=== PATIENT | male | born 1955 | race Caucasian/White ===

== ENCOUNTER → 2016-12-13 | Outpatient (CLI) | payer OTHER ==
--- NOTE | 2016-12-13 11:46 | FL ---
EXAMINATION TYPE: FL barium swallow DATE OF EXAM: 12/13/2016 CLINICAL HISTORY: Dysphagia. Negative endoscopy 3 years ago. Perhaps mild narrowing at that time. Inc reasing dysphagia upper esophagus per patient. TECHNIQUE: A double contrast esophagram is performed utilizing air and barium. A total of 6 seconds of fluoroscopic time was utilized during procedure. COMPARISON: Upper GI study November 16, 2014 FINDINGS: The esophagus shows normal motility and emptying into the stomach. No evidence of hiatal h ernia or stricture noted. No diverticulum is present. No significant gastroesophageal reflux was seen during real time performance of this study. IMPRESSION: No significant abnormality is seen to account for patient's symptoms.
== END ==
LOC: RADFLMAIN 09:43
PROVIDERS: ATTEND Family Medicine
DX: R47.02 Dysphasia (principal)
CPT/HCPCS: 74220

== ENCOUNTER → 2017-05-11 | Outpatient (CLI) | payer OTHER | END | disposition home or self-care (01) | LOC: LABWHC1 15:10 | PROVIDERS: ATTEND Physical Medicine & Rehabilitation | DX: M51.36 Other intervertebral disc degeneration, lumbar region (principal); M47.817 Spondylosis without myelopathy or radiculopathy, lumbosacral region; S32.010A Wedge compression fracture of first lumbar vertebra, initial encounter for closed fracture; S32.030A Wedge compression fracture of third lumbar vertebra, initial encounter for closed fracture; S32.050A Wedge compression fracture of fifth lumbar vertebra, initial encounter for closed fracture; S32.020A Wedge compression fracture of second lumbar vertebra, initial encounter for closed fracture; M16.11 Unilateral primary osteoarthritis, right hip; M25.551 Pain in right hip; R07.81 Pleurodynia; M42.06 Juvenile osteochondrosis of spine, lumbar region; Z96.652 Presence of left artificial knee joint; M70.62 Trochanteric bursitis, left hip | CPT/HCPCS: 36415; 83970; 84165; 84402; 84403; 84443 ==

== ENCOUNTER → 2017-08-08 | Outpatient (CLI) | payer OTHER ==
--- NOTE | 2017-08-09 09:28 | BD ---
EXAMINATION TYPE: MG DEXA axial skeleton. DATE OF EXAM: 08/08/2017 COMPARISON: DEXA bone scan October 18, 2015. CLINICAL HISTORY: osteoporosis. Height: 5'6 1/2 Weight: 166 FRAX RISK QUESTIONS: Alcohol (3 or more units per day): no Family History (Parent hip fracture): no Glucocorticoids (More than 3mos): no (Ex: prednisone, prednisolone, methylprednisolone, dexamethasone, and hydrocortisone). History of Fracture in Adulthood: yes Secondary Osteoporosis: 1. Type 1 Diabetes: no 2. Hyperthyroidism: no 3. Menopause before 45: na 4. Malnutrition: no 5. Chronic liver disease: no Rheumatoid Arthritis: no Current Tobacco Use: yes RISK FACTORS HISTORY OF: Spine Fx: L1-L4 When: 2015 Surgery /Hip(\/left)/ When: 2014 Active: Diet low in dairy products/other sources of calcium: Lost more than 2 inches in height since high school: MEDICATIONS: Osteoporosis Medications: Which medication: Other How Lon years Additional Medications: Methadone, Plavix, Prilosec, inhaler copd Additional History: EXAM MEASUREMENTS: Bone mineral densitometry was performed using the [facility]. Bone mineral density about the R hip (g/cm2): 0.641 T Score values are as follows: -----R Neck: -2.9 -----R Total: -2.8 Bone mineral density has: Decreased -0.8% since study of: 10/18/2015 IMPRESSION: Osteoporosis (T Score less than -2.5) as noted by T Score values at the right hip remains present. T here is increased fracture risk and therapy is usually indicated based on age. Re-Screen 1-2 years. NOTE: T-SCORE=SD OF THE YOUNG ADULT MEAN.
== END | disposition home or self-care (01) ==
LOC: RADBDWWP 14:28
PROVIDERS: ATTEND Family Medicine
DX: M81.0 Age-related osteoporosis without current pathological fracture (principal)
CPT/HCPCS: 77080

== ENCOUNTER → 2017-09-21 | Outpatient (CLI) | payer OTHER ==
[2017-09-21 09:03] LABS: ALT 27 U/L (21-72); AST 19 U/L (17-59); Albumin 3.9 g/dL (3.5-5.0); Alkaline Phosphatase 77 U/L (38-126); Anion Gap 11 mmol/L; Blood Urea Nitrogen 19 mg/dL (9-20); Calcium 9.3 mg/dL (8.4-10.2); Carbon Dioxide 25 mmol/L (22-30); Chloride 109 mmol/L (98-107); Glucose 95 mg/dL (74-99); Potassium 4.3 mmol/L (3.5-5.1); Sodium 145 mmol/L (137-145); Total Bilirubin 0.3 mg/dL (0.2-1.3); Total Protein 6.3 g/dL (6.3-8.2)
[2017-09-21 16:57] LABS: Vitamin D 25 Hydroxy 47.5 ng/mL (30.0-100.0)
[2017-09-21 17:27] LABS: Parathyroid Hormone Intact 50.6 pg/mL (14.0-72.0)
== END | disposition home or self-care (01) ==
LOC: LABWHC1 08:17
PROVIDERS: ATTEND Internal Medicine
DX: M81.0 Age-related osteoporosis without current pathological fracture (principal)
CPT/HCPCS: 36415; 80053; 82306; 83970; 84075

== ENCOUNTER → 2017-10-02 | Outpatient (CLI) | payer OTHER ==
[2017-10-02 12:44] LABS: Basophils % (A) 0 %; Eosinophils # (A) 0.2 k/uL (0-0.7); Eosinophils % (A) 3 %; HCT 40.1 % (39.0-53.0); Lymphocytes # (A) 0.7 k/uL (1.0-4.8); Lymphocytes % (A) 8 %; MCH 29.3 pg (25.0-35.0); MCHC 32.3 g/dL (31.0-37.0); MCV 90.7 fL (80.0-100.0); Monocytes # (A) 0.2 k/uL (0-1.0); Monocytes % (A) 3 %; Neutrophils % (A) 86 %; Platelet Count 199 k/uL (150-450); RBC 4.42 m/uL (4.30-5.90); RDW 14.5 % (11.5-15.5); WBC 8.2 k/uL (3.8-10.6)
[2017-10-02 12:54] LABS: Albumin 3.8 g/dL (3.5-5.0); Bilirubin, Delta 0.3 mg/dL (0.0-0.2); Total Bilirubin 0.3 mg/dL (0.2-1.3); Total Protein 6.2 g/dL (6.3-8.2)
== END | disposition home or self-care (01) ==
LOC: LABWHC1 12:27
PROVIDERS: ATTEND Physical Medicine & Rehabilitation
DX: M16.11 Unilateral primary osteoarthritis, right hip (principal); S32.010D Wedge compression fracture of first lumbar vertebra, subsequent encounter for fracture with routine healing; S32.030D Wedge compression fracture of third lumbar vertebra, subsequent encounter for fracture with routine healing; S32.050D Wedge compression fracture of fifth lumbar vertebra, subsequent encounter for fracture with routine healing; S32.040D Wedge compression fracture of fourth lumbar vertebra, subsequent encounter for fracture with routine healing; S32.020D Wedge compression fracture of second lumbar vertebra, subsequent encounter for fracture with routine healing; M25.551 Pain in right hip; M47.812 Spondylosis without myelopathy or radiculopathy, cervical region; M50.322 Other cervical disc degeneration at C5-C6 level; M47.817 Spondylosis without myelopathy or radiculopathy, lumbosacral region
CPT/HCPCS: 36415; 80076; 82550; 85025

== ENCOUNTER 2018-07-14 19:36 | Inpatient (IN) | payer OTHER ==
[2018-07-14] MEDS ORDERED: methylPREDNISolone SOD SUCCI 125 MG/2 ML VIAL IV STA (20:18)
[2018-07-14] MEDS ORDERED: SODIUM CHLORIDE 0.9% 1,000 ML IV STA (20:18)
[2018-07-14] MEDS ORDERED: IPRATROPIUM-ALBUTEROL 3 ML NEB INHALATION STA ×2 (20:18→21:38)
--- NOTE | 2018-07-14 20:21 | ED ---
Chest Pain HPI - General Chief Complaint: Chest Pain Stated Complaint: KAMINI Time Seen by Provider: 07/14/18 19:57 Source: patient, RN notes reviewed Mode of arrival: wheelchair Limitations: no limitations - History of Present Illness Initial Comments: This is a 63-year-old male with a history recent hospitalization for pneumonia and COPD exacerbation who does state he just quit smoking who presents today with complaints of shortness of breath cough and green phlegm exertional dyspnea. He states is been going on for a while be getting worse he was in the hospital October the other hospital in [facility] discharge readmitted he states she' s not been well since. He also states she has some right-sided sharp chest pain he states he was bending over in a vending machine when he felt a pop. He denies any other complaints at this time he is not even able go the bathroom without getting short of breath he states. No palpitations reported no other modifying factors MD Complaint: chest pain, other - Related Data Home Medications Medication Instructions Recorded Confirmed Ferrous Sulfate [Feosol] 325 mg PO DAILY 06/22/16 07/14/18 traZODone HCL 150 mg PO HS 06/22/16 07/14/18 Beclomethasone Dipropionate [Qvar 1 puff INHALATION RT-BID 07/12/18 07/14/18 80 mcg] Calcium Carbonate/Vitamin D3 1 tab PO DAILY 07/12/18 07/14/18 [Calcium 600-Vit D3 500 Softgel] Cholecalciferol [Vitamin D3] 1,000 unit PO DAILY 07/12/18 07/14/18 Clopidogrel [Plavix] 75 mg PO DAILY 07/12/18 07/14/18 Ipratropium-Albuterol Nebulize 3 ml INHALATION RT-QID 07/12/18 07/14/18 [Duoneb 0.5 mg-3 mg/3 ml Soln] Methadone HCl [Dolophine HCl] 7.5 mg PO Q12H 07/12/18 07/14/18 tiZANidine HCL [Zanaflex] 4 mg PO HS 07/12/18 07/14/18 Atorvastatin [Lipitor] 80 mg PO HS 07/14/18 07/14/18 Allergies Allergy/AdvReac Type Severity Reaction Status Date / Time hydrocodone Allergy Abdominal Verified 07/14/18 20:33 Pain ketorolac tromethamine Allergy Abdominal Verified 07/14/18 20:33 [From Toradol] Pain aspirin AdvReac Abdominal Verified 07/14/18 20:33 Pain ibuprofen AdvReac Abdominal Verified 07/14/18 20:33 Pain NSAIDS (Non-Steroidal AdvReac Abdominal Verified 07/14/18 20:33 Anti-Inflamma Pain Review of Systems ROS Statement: Those systems with pertinent positive or pertinent negative responses have been documented in the HPI. ROS Other: All systems not noted in ROS Statement are negative. EKG Findings - EKG Results: EKG: interpreted by SERGEY, sinus rhythm (Sinus rhythm rate 94 SD interval 140 QRS duration 86 QT since QTC 366/[address]-T wave changes) Past Medical History Past Medical History: COPD, Hyperlipidemia, Musculoskeletal Disorder, Pneumonia , Prostate Disorder Additional Past Medical History / Comment(s): SEVERE CHRONIC BACK PAIN; LT HIP SCIATICA. PUD. BPH. C-DIFF 10/2014 History of Any Multi-Drug Resistant Organisms: C-DIFF Date of last positivie culture/infection: 10/2014 / C-Diff MDRO Source:: stool Past Surgical History: Cholecystectomy, Joint Replacement, Orthopedic Surgery Additional Past Surgical History / Comment(s): BONE SPUR REMOVED LT ELBOW, RT ARM SX, LT DIONNA, COLONOSCOPY Past Anesthesia/Blood Transfusion Reactions: No Reported Reaction Past Psychological History: Anxiety, Depression Smoking Status: Current some day smoker Past Alcohol Use History: None Reported Past Drug Use History: None Reported - Past Family History Mother Family Medical History: Diabetes Mellitus General Exam - General Exam Comments Initial Comments: This is a well-developed well-nourished awake alert oriented times 3 male Limitations: no limitations General appearance: alert, anxious, in distress Head exam: Present: atraumatic, normocephalic, normal inspection Eye exam: Present: normal appearance, PERRL, EOMI. Absent: scleral icterus, conjunctival injection, periorbital swelling ENT exam: Present: normal exam, mucous membranes moist Neck exam: Present: normal inspection. Absent: tenderness, meningismus, lymphadenopathy Respiratory exam: Present: wheezes, chest wall tenderness (Tennis palpation of the right chest wall laterally no step-off or crepitation no obvious bruising.) , decreased breath sounds. Absent: respiratory distress, rales, rhonchi, stridor Cardiovascular Exam: Present: regular rate, normal rhythm, normal heart sounds. Absent: systolic murmur, diastolic murmur, rubs, gallop, clicks GI/Abdominal exam: Present: soft, normal bowel sounds. Absent: distended, tenderness, guarding, rebound, rigid Extremities exam: Present: normal inspection, full ROM, normal capillary refill , pedal edema. Absent: tenderness, joint swelling, calf tenderness Back exam: Present: normal inspection Neurological exam: Present: alert, oriented X3, CN II-XII intact Psychiatric exam: Present: normal affect, normal mood Skin exam: Present: warm, dry, intact, normal color. Absent: rash Course Vital Signs 07/14/18 07/14/18 07/14/18 19:38 20:30 21:01 Temperature 97.9 F Pulse Rate 78 75 75 Respiratory 24 20 18 Rate Blood Pressure 149/72 131/69 O2 Sat by Pulse 94 L 97 Oximetry 07/14/18 07/14/18 21:07 21:30 Temperature Pulse Rate 76 72 Respiratory 18 22 Rate Blood Pressure 117/72 O2 Sat by Pulse 96 Oximetry - Reevaluation(s) Reevaluation #1: 07/14/18 21:50 I did reevaluate patient several occasions he had minimal improvement from the treatment that was rendered thus far. Repeat updraft was ordered. Reevaluation #2: 07/14/18 21:50 Patient does demonstrate elevated d-dimer. Patient will be receiving a CT of the chest PE protocol. Chest Pain MDM - MDM The patient's x-ray was reviewed there is a left pleural effusion. No definite fractures seen. I did discuss the case with Dr. Sanford the patient will be admitted for COPD exacerbation a CT chest is pending at this time to rule out PE. Dr. spence he will be reviewing this and appropriate treatment will be performed pending the results. Critical Care Time Critical Care Time: Yes Critical Care Time: 33 minutes of critical care time which includes initial presentation with history physical labs x-rays multiple re-evaluations patient response to therapy discussion with the patient regarding findings discussion with the admitting physician admission orders and documentation of the above Disposition Clinical Impression: COPD exacerbation, Adult respiratory distress syndrome, Failure of outpatient treatment, Elevated d-dimer, Pleural effusion Disposition: ADMITTED IP TO THIS [facility] Condition: Serious Referrals: Gareth Yi DO [Primary Care Provider] - 1-2 days
[2018-07-14 20:47] LABS: Basophils % (A) 0 %; Eosinophils # (A) 0.3 k/uL (0-0.7); Eosinophils % (A) 5 %; HCT 36.1 % (39.0-53.0); HGB 11.7 gm/dL (13.0-17.5); Lymphocytes % (A) 21 %; MCH 29.6 pg (25.0-35.0); MCHC 32.3 g/dL (31.0-37.0); MCV 91.7 fL (80.0-100.0); Mean Platelet Volume 6.8; Monocytes # (A) 0.3 k/uL (0-1.0); Monocytes % (A) 5 %; Neutrophils # (A) 3.1 k/uL (1.3-7.7); Neutrophils % (A) 66 %; Platelet Count 244 k/uL (150-450); RBC 3.94 m/uL (4.30-5.90); RDW 14.9 % (11.5-15.5); WBC 4.8 k/uL (3.8-10.6)
[2018-07-14] MEDS ORDERED: ONDANSETRON 4 MG/2 ML VIAL IVP STA (20:54)
--- NOTE | 2018-07-14 21:04 | XR ---
EXAMINATION TYPE: XR chest 2V DATE OF EXAM: 07/14/2018 COMPARISON: Chest radiograph 06/22/2016 HISTORY: Pain following trauma TECHNIQUE: Frontal and lateral views of the chest are obtained. FINDINGS: Small left-sided pleural effusion. No pneumothorax or focal airspace disease. The previous ly described 7 mm nodule in the lateral aspect of the right upper lobe is not well delineated on the current study. The osseous structures appear intact. IMPRESSION: Interval development of small left-sided pleural effusion.
[2018-07-14 21:10] LABS: INR 0.9 (<1.2); Partial Thromboplastin Time 25.1 sec (22.0-30.0); Prothrombin Time 9.4 sec (9.0-12.0)
[2018-07-14 21:14] LABS: ALT 50 U/L (21-72); AST 47 U/L (17-59); Albumin 3.6 g/dL (3.5-5.0); Alkaline Phosphatase 57 U/L (38-126); Anion Gap 6 mmol/L; Blood Urea Nitrogen 9 mg/dL (9-20); Calcium 8.7 mg/dL (8.4-10.2); Carbon Dioxide 26 mmol/L (22-30); Chloride 107 mmol/L (98-107); Glucose 111 mg/dL (74-99); Magnesium 2.1 mg/dL (1.6-2.3); Potassium 4.5 mmol/L (3.5-5.1); Sodium 139 mmol/L (137-145); Total Bilirubin 0.3 mg/dL (0.2-1.3)
[2018-07-14 21:18] LABS: D-Dimer 1.49 mg/L FEU (<0.60)
[2018-07-14] MEDS ORDERED: MAGNESIUM SULFATE-D5W PMX 1 GM in DEXTROSE/WATER 1 100ML.BAG IVPB ONE (21:38)
--- NOTE | 2018-07-14 21:58 | CT ---
EXAMINATION TYPE: CT angio chest DATE OF EXAM: 07/14/2018 COMPARISON: NONE HISTORY: SOB, cough CT DLP: 452.3 mGycm. Automated Exposure Control for Dose Reduction was Utilized. CONTRAST: CTA scan of the thorax is performed with IV Contrast, patient injected with 100 mL of Isovue 370, pul monary embolism protocol. MIP Images are created on CT scanner and reviewed. FINDINGS: LUNGS: Small left pleural effusion with associated atelectasis. Motion artifact is present which limi ts evaluation for small nodules. No large pulmonary nodules or masses. No additional focal airspace d isease. No pneumothorax. MEDIASTINUM: There is enhancement of the pulmonary artery and its branches, there is no CT evidence f or pulmonary embolism. There are no greater than 1 cm hilar or mediastinal lymph nodes. No cardiom egaly or pericardial effusion is seen. OTHER: Surgical pin is present in the distal right ulna on the assistive technology trainer image. Multiple lumbar vertebral body height loss. IMPRESSION: 1. No evidence of central or segmental pulmonary embolism. 2. Trace left pleural effusion with atelectasis. 3. Multilevel lumbar vertebral body height loss. Correlate with pain for acuity of compression fractu res.
[2018-07-14 22:15] LABS: Creatine Kinase 480 U/L (55-170)
[2018-07-14 22:28] LABS: Creatine Kinase MB 5.6 ng/mL (0.0-2.4); Troponin I <0.012 ng/mL (0.000-0.034)
[2018-07-14] MEDS ORDERED: IPRATROPIUM-ALBUTEROL 3 ML NEB INHALATION PRN (22:44)
[2018-07-14] MEDS: METHADONE 5 MG TAB PO SCH (23:30)
[2018-07-15 00:14] VITALS: BMI 28.1
[2018-07-15] MEDS: methylPREDNISolone SOD SUCCI 125 MG/2 ML VIAL IV SCH ×4 (00:19→18:37)
[2018-07-15] MEDS: IPRATROPIUM 0.5 MG/2.5 ML NEBU INHALATION SCH ×3 (07:05→15:09)
[2018-07-15 07:43] LABS: Glucose,Whole Blood 145 mg/dL (75-99)
[2018-07-15] MEDS ORDERED: CHOLECALCIFEROL 1,000 UNIT TAB PO SCH (09:00)
[2018-07-15] MEDS ORDERED: CALCIUM CARB-VIT D 500MG-200UN 1 EACH TAB PO SCH (09:00)
[2018-07-15] MEDS ORDERED: FERROUS SULFATE 325 MG TAB PO SCH (09:00)
[2018-07-15] MEDS: INSULIN ASPART 100 UNIT/ML 1 ML 10 ML VIAL SQ SCH ×4 (09:11→21:07)
[2018-07-15] MEDS: CLOPIDOGREL 75 MG TAB PO SCH (09:42)
[2018-07-15] MEDS: METHADONE 5 MG TAB PO SCH ×2 (09:42→21:03)
[2018-07-15 11:16] LABS: Hemoglobin A1C 5.6 % (4.0-6.0)
[2018-07-15 11:50] LABS: Glucose,Whole Blood 137 mg/dL (75-99)
[2018-07-15 17:27] LABS: Glucose,Whole Blood 141 mg/dL (75-99)
[2018-07-15] MEDS ORDERED: NALOXONE 0.4 MG/ML 1 ML VIAL IV PRN (19:10)
[2018-07-15] MEDS ORDERED: MELATONIN 3 MG TABLET PO PRN (19:10)
[2018-07-15] MEDS ORDERED: LACTULOSE 20 GM/30 ML CUP PO PRN (19:10)
[2018-07-15] MEDS ORDERED: MAGNESIUM HYDROXIDE 2,400 MG/10 ML CUP PO PRN (19:10)
[2018-07-15] MEDS ORDERED: CALCIUM CARBONATE 500 MG CHEWABLE PO PRN (19:10)
[2018-07-15] MEDS ORDERED: ACETAMINOPHEN TAB 325 MG TAB PO PRN (19:10)
[2018-07-15] MEDS ORDERED: ALPRAZolam 0.25 MG TAB PO PRN (19:10)
[2018-07-15] MEDS: BUDESONIDE 1 MG/2 ML NEBU INHALATION SCH (19:36)
[2018-07-15] MEDS: IPRATROPIUM-ALBUTEROL 3 ML NEB INHALATION SCH (19:36)
--- NOTE | 2018-07-15 20:23 | HP ---
HISTORY AND PHYSICAL DATE OF ADMISSION: July 14, 2018 DATE OF SERVICE: July 15, 2018. PRESENTING COMPLAINT: Cough, wheezing. HISTORY OF PRESENTING COMPLAINT: A 63-year-old patient follows with Dr. Yi and bank reconciliator Dr. Coats. Chronic stable medical conditions include hyperlipidemia, chronic severe back pain, BPH. The patient has stopped smoking very recently. The patient presents with increasing cough, wheezing, short of breath, not able to bring up much phlegm, congested in the chest. Denies any fever, some chills. Appetite is run down, feeling weak and tired. Admitted through the ER. Started on bronchodilators, steroids. Feeling tired and run down. Quite a bit short of breath at rest. REVIEW OF SYSTEMS: CONSTITUTIONAL: Tired. HEENT: None. RESPIRATORY as above. CARDIOVASCULAR: None. GASTROINTESTINAL: None. GENITOURINARY: None. MUSCULOSKELETAL: Chronic low back pain. DERMATOLOGICAL, HEMATOLOGIC, LYMPHATICS: None. PSYCHIATRY: Anxious. NEUROLOGICAL: None. PAST MEDICAL HISTORY: COPD, hyperlipidemia, chronic low back pain, left hip sciatica, peptic ulcer disease, BPH. PAST SURGICAL HISTORY: Cholecystectomy, joint replacement, bone spur removed left elbow, right arm surgery, left total hip arthroplasty. SOCIAL HISTORY: Smokes half a pack a day for about 45 years, stopped like 2 or 3 weeks ago. Alcohol none. Lives by himself. FAMILY HISTORY: Diabetes. HOME MEDICATIONS: 1. Trazodone 150 mg q.h.s. 2. Zanaflex 4 mg q.h.s. 3. Methadone 7.5 mg p.o. q.12h. 4. DuoNeb q.i.d. 5. Iron 325 p.o. daily. 6. Plavix 75 mg daily. 7. Vitamin D3 1000 units p.o. daily. 8. Calcium with vitamin D 1 tablet p.o. daily. 9. QVAR 80 1 puff b.i.d. 10.Lipitor 80 mg q.h.s. ALLERGIES: TO HYDROCODONE, KETORALAC, ASPIRIN, IBUPROFEN, NSAIDS. PHYSICAL EXAMINATION: VITAL SIGNS: Temperature 98.2, pulse 58, respiration 17, blood pressure 147/83, pulse ox 97 percent. GENERAL APPEARANCE: Average built. Sitting up at the edge of bed, short of breath, anxious. EYES: Pupils equal. Conjunctivae normal. HEENT: External appearance of nose and ears normal. Oral cavity normal. NECK: JVD not raised. Mass not palpable. RESPIRATORY: Effort increased. LUNGS: Diminished breath sounds. Poor air entry. Prolonged expiration. CARDIOVASCULAR: 1st and 2nd sounds normal. No edema. ABDOMEN: Soft, nontender. Liver and spleen not palpable. LYMPHATICS: No lymph nodes palpable in the neck and axillae. PSYCHIATRY: Alert and oriented times three. Poor affect. Very anxious-appearing. NEUROLOGICAL: Pupils equal. Cranial nerves grossly intact. Power and sensation grossly intact. INVESTIGATIONS: EKG film personally reviewed by me shows sinus tachycardia. Chest x-ray film personally reviewed by me shows some hyperinflation. ASSESSMENT: 1. Acute severe chronic obstructive pulmonary disease exacerbation in a smoker. 2. Chronic nicotine dependence patient is a cigarette smoker. 3. Chronic low back pain for which the patient is on chronic pain medications. 4. Hyperlipidemia. 5. Benign prostatic hypertrophy. 6. Peptic ulcer disease. 7. Anxiety and depression, not otherwise specified. PLAN: Patient is started on IV Solu-Medrol, nebulized bronchodilator dilators every 4 hours. We will also add inhaled steroids. We will give Lovenox for DVT prophylaxis. Home medications are resumed. Consultation with Dr. Coats. Care was discussed with the patient. Questions were answered. Copy to Dr. Yi. MMMANDAL / ADRIANA: [id number] /
[2018-07-15 20:50] LABS: Glucose,Whole Blood 140 mg/dL (75-99)
[2018-07-15] MEDS: tiZANidine 4 MG TAB PO SCH (21:03)
[2018-07-15] MEDS: ATORVASTATIN 80 MG TAB PO SCH (21:03)
[2018-07-15] MEDS: ENOXAPARIN 40 MG/0.4 ML SYRINGE SQ SCH (21:07)
[2018-07-16] MEDS: methylPREDNISolone SOD SUCCI 125 MG/2 ML VIAL IV SCH ×5 (00:07→23:00)
[2018-07-16] MEDS: traZODone HCL 50 MG TAB PO SCH ×2 (00:07→23:00)
[2018-07-16] MEDS: IPRATROPIUM-ALBUTEROL 3 ML NEB INHALATION SCH ×7 (00:13→23:17)
[2018-07-16 07:38] LABS: Glucose,Whole Blood 133 mg/dL (75-99)
[2018-07-16] MEDS: BUDESONIDE 1 MG/2 ML NEBU INHALATION SCH ×2 (07:43→19:15)
[2018-07-16] MEDS: INSULIN ASPART 100 UNIT/ML 1 ML 10 ML VIAL SQ SCH ×4 (08:18→20:42)
[2018-07-16] MEDS: ENOXAPARIN 40 MG/0.4 ML SYRINGE SQ SCH (10:25)
[2018-07-16] MEDS: CLOPIDOGREL 75 MG TAB PO SCH (10:26)
[2018-07-16] MEDS: METHADONE 5 MG TAB PO SCH ×2 (10:26→20:39)
[2018-07-16 11:48] LABS: Glucose,Whole Blood 116 mg/dL (75-99)
--- NOTE | 2018-07-16 14:05 | P.CNPUL ---
History of Present Illness Consult date: 07/16/18 Reason for consult: dyspnea, cough, COPD Chief complaint: Cough shortness of breath worsening for the last 3-4 days History of present illness: Excision 3-year-old male with past medical history of severe COPD and chronic persistent asthma, patient has been an active smoker about half to 1 pack per day, patient recently has been hospitalized in mid of June with the increasing respiratory difficulty cough required IV steroids breathing treatments and eventually improved recovered and was discharged in stable condition was doing well for 5-6 days post discharge and slowly started having worsening of breathing difficulties along with chest tightness cough denies any hemoptysis cough is mostly dry and nonproductive, patient does have some feverish feeling, on specific questioning denies any seizure-like to a loss of consciousness), denies any chest pain or radiation of pain, denies any bowel or bladder dysfunction, admitted chest x-ray revealed a small left-sided pleural effusion, the computed tomography scan of the chest which was performed 2018 failed to reveal filling defect like pulmonary embolism however does reveal multiple compression fracture in the the lumbar vertebra, small left- sided pleural effusion with subsegmental atelectasis was noted, patient is being treated with IV steroids along with bronchodilators Review of Systems All systems: negative Past Medical History Past Medical History: COPD, Hyperlipidemia, Musculoskeletal Disorder, Pneumonia Additional Past Medical History / Comment(s): SEVERE CHRONIC BACK PAIN; LT HIP SCIATICA. PUD. BPH. C-DIFF 10/2014 History of Any Multi-Drug Resistant Organisms: None Reported Date of last positivie culture/infection: None MDRO Source:: None Past Surgical History: Cholecystectomy, Joint Replacement, Orthopedic Surgery Additional Past Surgical History / Comment(s): BONE SPUR REMOVED LT ELBOW, RT ARM SX, LT DIONNA, COLONOSCOPY Past Anesthesia/Blood Transfusion Reactions: No Reported Reaction Past Psychological History: Anxiety, Depression Smoking Status: Former smoker Past Alcohol Use History: None Reported Additional Past Alcohol Use History / Comment(s): SMOKES 1/2 PPD SINCE AGE 18 Past Drug Use History: None Reported Additional Drug Use History / Comment(s): Pt reports smoking 3/4 pack of cigarettes per day - Past Family History Mother Family Medical History: Diabetes Mellitus Medications and Allergies Home Medications Medication Instructions Recorded Confirmed Type Ferrous Sulfate [Feosol] 325 mg PO DAILY 06/22/16 07/14/18 History traZODone HCL 150 mg PO HS 06/22/16 07/14/18 History Beclomethasone Dipropionate [Qvar 1 puff INHALATION RT-BID 07/12/18 07/14/18 History 80 mcg] Calcium Carbonate/Vitamin D3 1 tab PO DAILY 07/12/18 07/14/18 History [Calcium 600-Vit D3 500 Softgel] Cholecalciferol [Vitamin D3] 1,000 unit PO DAILY 07/12/18 07/14/18 History Clopidogrel [Plavix] 75 mg PO DAILY 07/12/18 07/14/18 History Ipratropium-Albuterol Nebulize 3 ml INHALATION RT-QID 07/12/18 07/14/18 History [Duoneb 0.5 mg-3 mg/3 ml Soln] Methadone HCl [Dolophine HCl] 7.5 mg PO Q12H 07/12/18 07/14/18 History tiZANidine HCL [Zanaflex] 4 mg PO HS 07/12/18 07/14/18 History Atorvastatin [Lipitor] 80 mg PO HS 07/14/18 07/14/18 History Allergies Allergy/AdvReac Type Severity Reaction Status Date / Time hydrocodone Allergy Abdominal Verified 07/14/18 20:33 Pain ketorolac tromethamine Allergy Abdominal Verified 07/14/18 20:33 [From Toradol] Pain aspirin AdvReac Abdominal Verified 07/14/18 20:33 Pain ibuprofen AdvReac Abdominal Verified 07/14/18 20:33 Pain NSAIDS (Non-Steroidal AdvReac Abdominal Verified 07/14/18 20:33 Anti-Inflamma Pain Physical Exam Vitals: Vital Signs Temp Pulse Pulse Resp BP Pulse Ox 07/16/18 10:52 88 07/16/18 10:40 88 07/16/18 07:59 82 07/16/18 07:43 80 16 95 07/16/18 07:30 97.6 F 91 16 148/81 91 L 07/16/18 04:25 84 07/16/18 04:15 84 07/16/18 00:30 89 07/16/18 00:15 89 07/15/18 23:25 98.1 F 73 16 124/68 95 07/15/18 19:59 91 07/15/18 19:50 98.1 F 79 16 129/71 94 L 07/15/18 19:36 88 07/15/18 15:20 98.2 F 78 17 147/83 97 07/15/18 15:19 88 07/15/18 15:10 80 Intake and Output 07/15/18 07/16/18 07/16/18 22:59 06:59 14:59 Intake Total 0 120 Balance 0 120 Intake: Intake, IV Titration 0 Amount Sodium Chloride 0.9% 1, 0 000 ml @ 20 mls/hr IV . Q24H STA Rx#:[id number] Oral 120 Other: Voiding Method Toilet # Voids 1 - Constitutional General appearance: average body habitus, cooperative, disheveled, mild distress - EENT Eyes: EOMI, PERRLA, fundus normal, poor dentition, normal appearance Ears: bilateral: normal - Neck Neck: normal ROM Carotids: bilateral: upstroke normal Thyroid: bilateral: normal size - Respiratory Respiratory: bilateral: diminished, rhonchi, wheezing, prolonged expiration, negative: CTA, dullness, rales - Cardiovascular Rhythm: regular Heart sounds: normal: S1, S2 - Gastrointestinal General gastrointestinal: normal bowel sounds, soft - Neurologic Neurologic: CNII-XII intact - Musculoskeletal Musculoskeletal: gait normal, generalized weakness, strength equal bilaterally - Psychiatric Psychiatric: A&O x's 3, appropriate affect, intact judgment & insight Results - Laboratory Findings CBC and BMP: 07/14/18 20:29 07/14/18 20:29 PT/INR, D-dimer PT 9.4 sec (9.0-12.0) 07/14/18 20:29 INR 0.9 (<1.2) 07/14/18 20:29 D-Dimer 1.49 mg/L FEU (<0.60) H 07/14/18 20:29 Abnormal lab findings: Abnormal Labs 07/14/18 07/14/18 07/14/18 20:29 20:29 20:29 RBC 3.94 L Hgb 11.7 L Hct 36.1 L D-Dimer Glucose 111 H POC Glucose (mg/dL) Total Creatine Kinase 480 H CK-MB (CK-2) 5.6 H Total Protein 6.0 L 07/14/18 07/15/18 07/15/18 20:29 07:30 11:37 RBC Hgb Hct D-Dimer 1.49 H Glucose POC Glucose (mg/dL) 145 H 137 H Total Creatine Kinase CK-MB (CK-2) Total Protein 07/15/18 07/15/18 07/16/18 17:15 20:39 07:19 RBC Hgb Hct D-Dimer Glucose POC Glucose (mg/dL) 141 H 140 H 133 H Total Creatine Kinase CK-MB (CK-2) Total Protein 07/16/18 11:34 RBC Hgb Hct D-Dimer Glucose POC Glucose (mg/dL) 116 H Total Creatine Kinase CK-MB (CK-2) Total Protein - Diagnostic Findings Chest x-ray: report reviewed, image reviewed CT scan - chest: report reviewed, image reviewed (Finding as noted above) Assessment and Plan Assessment: Acute COPD exacerbation Acute tracheobronchitis Small left-sided pleural effusion Left lower lobe occult pneumonia cannot be excluded Extensive history of smoking and nicotine use Plan: Bronchodilators IV steroids Breathing treatments Deep breathing exercise incentive spirometry Oral antibiotics DVT prophylaxis Patient has been consult educated about smoking cessation Time with Patient: Greater than 30
[2018-07-16 17:31] LABS: Glucose,Whole Blood 122 mg/dL (75-99)
--- NOTE | 2018-07-16 17:36 | PN ---
PROGRESS NOTE DATE OF SERVICE: 07/16/2018 PRESENT COMPLAINT: Cough, wheezing. INTERVAL HISTORY: This patient was admitted with severe COPD exacerbation. Cough is present. Not much sputum. Breathing is a shade better. Wheezing is somewhat better. Did tolerate some diet. Still gets easily short of breath, even going to the bathroom. REVIEW OF SYSTEMS: Done for constitutional, cardiovascular, GI, pulmonary; relevant findings as above. CURRENT MEDICATIONS: Reviewed. They include: 1. Bronchodilators. 2. IV Solu-Medrol. 3. Inhaled steroids. PHYSICAL EXAMINATION: Temperature 98, pulse 92, respiration 12, blood pressure 155/81, pulse ox 92% on 3 L. GENERAL APPEARANCE: Sitting up, tired-appearing, short of breath. EYES: Pupils equal. Conjunctivae normal. HEENT: External appearance of nose and ears normal. Oral cavity normal. NECK: JVD not raised. Mass not palpable. RESPIRATORY: Effort increased. LUNGS: Decreased breath sounds. A shade better air entry. Prolonged expiration. CARDIOVASCULAR: First and second sounds normal. No edema. ABDOMEN: Soft, non-tender. Liver and spleen not palpable. PSYCHIATRY: Alert and oriented x3. Anxious-appearing. INVESTIGATIONS: Accu-Cheks are noted. ASSESSMENT: 1. Acute severe chronic obstructive pulmonary disease exacerbation in a smoker, slow to respond. 2. Chronic nicotine dependence. Patient is a cigarette smoker. 3. Chronic low back pain, for which patient is on chronic pain medications. 4. Hyperlipidemia. 5. Benign prostatic hypertrophy. 6. Peptic ulcer disease. 7. Anxiety and depression not otherwise specified. PLAN: Continue with IV Solu-Medrol, nebulized bronchodilators, inhaled steroids. Will humidify the oxygen. Care was discussed with the patient. Reassured. Patient will need to be in the hospital at least for a couple of days. MMODL / IJN: [id number] /
[2018-07-16 20:20] LABS: Glucose,Whole Blood 133 mg/dL (75-99)
[2018-07-16] MEDS: DOXYCYCLINE 50 MG CAP PO SCH (20:39)
[2018-07-16] MEDS: tiZANidine 4 MG TAB PO SCH (20:39)
[2018-07-16] MEDS: ATORVASTATIN 80 MG TAB PO SCH (20:39)
[2018-07-17] MEDS: IPRATROPIUM-ALBUTEROL 3 ML NEB INHALATION SCH ×5 (03:54→19:39)
[2018-07-17] MEDS: methylPREDNISolone SOD SUCCI 125 MG/2 ML VIAL IV SCH ×4 (05:00→23:26)
[2018-07-17 07:19] LABS: Glucose,Whole Blood 142 mg/dL (75-99)
[2018-07-17] MEDS: BUDESONIDE 1 MG/2 ML NEBU INHALATION SCH ×2 (08:32→19:39)
[2018-07-17 08:36] LABS: Basophils % (A) 0 %; Eosinophils % (A) 0 %; HGB 11.2 gm/dL (13.0-17.5); Hypochromasia Slight; Lymphocytes # (A) 0.4 k/uL (1.0-4.8); Lymphocytes % (A) 5 %; MCH 30.4 pg (25.0-35.0); MCHC 32.1 g/dL (31.0-37.0); MCV 94.6 fL (80.0-100.0); Mean Platelet Volume 7.1; Monocytes # (A) 0.1 k/uL (0-1.0); Monocytes % (A) 2 %; Neutrophils # (A) 7.4 k/uL (1.3-7.7); Neutrophils % (A) 93 %; Platelet Count 271 k/uL (150-450); RDW 15.2 % (11.5-15.5); WBC 7.9 k/uL (3.8-10.6)
[2018-07-17] MEDS: ENOXAPARIN 40 MG/0.4 ML SYRINGE SQ SCH (08:45)
[2018-07-17] MEDS: METHADONE 5 MG TAB PO SCH ×2 (08:45→21:27)
[2018-07-17] MEDS: DOXYCYCLINE 50 MG CAP PO SCH ×2 (08:46→21:26)
[2018-07-17] MEDS: INSULIN ASPART 100 UNIT/ML 1 ML 10 ML VIAL SQ SCH ×4 (08:46→20:03)
[2018-07-17] MEDS: CLOPIDOGREL 75 MG TAB PO SCH (08:46)
[2018-07-17 09:27] LABS: Anion Gap 3 mmol/L; Blood Urea Nitrogen 20 mg/dL (9-20); Calcium 8.4 mg/dL (8.4-10.2); Carbon Dioxide 27 mmol/L (22-30); Chloride 109 mmol/L (98-107); Glucose 173 mg/dL (74-99); Potassium 4.6 mmol/L (3.5-5.1); Sodium 139 mmol/L (137-145)
[2018-07-17 11:33] LABS: Glucose,Whole Blood 128 mg/dL (75-99)
[2018-07-17 16:40] LABS: Glucose,Whole Blood 114 mg/dL (75-99)
[2018-07-17 19:57] LABS: Glucose,Whole Blood 136 mg/dL (75-99)
[2018-07-17] MEDS: ATORVASTATIN 80 MG TAB PO SCH (21:26)
[2018-07-17] MEDS: tiZANidine 4 MG TAB PO SCH (21:27)
[2018-07-17] MEDS: traZODone HCL 50 MG TAB PO SCH (23:26)
[2018-07-18] MEDS: IPRATROPIUM-ALBUTEROL 3 ML NEB INHALATION SCH ×7 (00:46→23:42)
[2018-07-18] MEDS: methylPREDNISolone SOD SUCCI 125 MG/2 ML VIAL IV SCH (05:22)
[2018-07-18 07:25] LABS: Glucose,Whole Blood 131 mg/dL (75-99)
[2018-07-18] MEDS: BUDESONIDE 1 MG/2 ML NEBU INHALATION SCH ×2 (07:34→19:06)
[2018-07-18] MEDS: INSULIN ASPART 100 UNIT/ML 1 ML 10 ML VIAL SQ SCH ×4 (08:13→20:21)
[2018-07-18] MEDS: DOXYCYCLINE 50 MG CAP PO SCH ×2 (08:26→21:08)
[2018-07-18] MEDS: METHADONE 5 MG TAB PO SCH ×2 (08:26→21:08)
[2018-07-18] MEDS: CLOPIDOGREL 75 MG TAB PO SCH (08:26)
[2018-07-18 08:27] LABS: Anion Gap 6 mmol/L; Blood Urea Nitrogen 18 mg/dL (9-20); Calcium 8.8 mg/dL (8.4-10.2); Carbon Dioxide 24 mmol/L (22-30); Chloride 110 mmol/L (98-107); Glucose 136 mg/dL (74-99); Potassium 4.8 mmol/L (3.5-5.1); Sodium 140 mmol/L (137-145)
[2018-07-18] MEDS: ENOXAPARIN 40 MG/0.4 ML SYRINGE SQ SCH (08:27)
--- NOTE | 2018-07-18 09:13 | P.PN ---
Subjective Progress Note Date: 07/18/18 Principal diagnosis: Acute COPD exacerbation, acute purulent tracheobronchitis, small left-sided pleural effusion, left lower lobe pneumonia, severe COPD emphysema, extensive history of smoking and nicotine use 07/18/2018, patient seen and evaluated examined today, today feeling slightly better cough congestion has improved but the patient has significant symptoms last night however extra breathing treatment were helpful, patient remains on IV steroids broad-spectrum antibiotics and breathing treatment unable to get the sputum so far will reorder it will obtain a follow-up chest x-ray as well further recommendations pending would continue antibiotics breathing treatments steroids for now with the same plan of care with close monitoring and observation 07/17/2018, patient seen eval examined during the rounds clinically has still have ongoing cough congestion shortness of breath severity of breathing difficulty with tenacious secretions are still there and labs reviewed medications reviewed him a blood cultures no growth so far labs reviewed medications reviewed, findings on the computed tomography scan were reviewed with the patient as well 63-year-old male with past medical history of severe COPD and chronic persistent asthma, patient has been an active smoker about half to 1 pack per day, patient recently has been hospitalized in mid of June with the increasing respiratory difficulty cough required IV steroids breathing treatments and eventually improved recovered and was discharged in stable condition was doing well for 5-6 days post discharge and slowly started having worsening of breathing difficulties along with chest tightness cough denies any hemoptysis cough is mostly dry and nonproductive, patient does have some feverish feeling, on specific questioning denies any seizure-like to a loss of consciousness), denies any chest pain or radiation of pain, denies any bowel or bladder dysfunction, admitted chest x-ray revealed a small left-sided pleural effusion, the computed tomography scan of the chest which was performed 2018 failed to reveal filling defect like pulmonary embolism however does reveal multiple compression fracture in the the lumbar vertebra, small left- sided pleural effusion with subsegmental atelectasis was noted, patient is being treated with IV steroids along with bronchodilators Objective - Vital Signs Vital signs: Vital Signs Temp 97.6 F 07/18/18 07:17 Pulse 64 07/18/18 07:50 Resp 18 07/18/18 07:17 BP 165/83 07/18/18 07:17 Pulse Ox 96 07/18/18 07:34 Intake & Output 07/17/18 07/18/18 07/18/18 18:59 06:59 18:59 Intake Total 940 Balance 940 Intake: Oral 940 Other: Voiding Method Toilet Toilet # Voids 3 2 - Exam - Constitutional General appearance: average body habitus, cooperative, disheveled, mild distress - EENT Eyes: EOMI, PERRLA, fundus normal, poor dentition, normal appearance Ears: bilateral: normal - Neck Neck: normal ROM Carotids: bilateral: upstroke normal Thyroid: bilateral: normal size - Respiratory Respiratory: bilateral: diminished, rhonchi, wheezing, prolonged expiration, negative: CTA, dullness, rales - Cardiovascular Rhythm: regular Heart sounds: normal: S1, S2 - Gastrointestinal General gastrointestinal: normal bowel sounds, soft - Neurologic Neurologic: CNII-XII intact - Musculoskeletal Musculoskeletal: gait normal, generalized weakness, strength equal bilaterally - Psychiatric Psychiatric: A&O x's 3, appropriate affect, intact judgment & insight - Labs CBC & Chem 7: 07/17/18 07:54 07/18/18 07:38 Labs: Abnormal Lab Results - Last 24 Hours (Table) 07/17/18 07/17/18 07/17/18 Range/Units 07:54 11:21 16:29 Chloride 109 H (98-107) mmol/L Glucose 173 H (74-99) mg/dL POC Glucose (mg/dL) 128 H 114 H (75-99) mg/dL 07/17/18 07/18/18 07/18/18 Range/Units 19:46 07:22 07:38 Chloride 110 H (98-107) mmol/L Glucose 136 H (74-99) mg/dL POC Glucose (mg/dL) 136 H 131 H (75-99) mg/dL Microbiology - Last 24 Hours (Table) 07/14/18 20:25 Blood Culture - Preliminary Blood No Growth after 72 hours Assessment and Plan Assessment: Acute COPD exacerbation Acute tracheobronchitis Small left-sided pleural effusion Left lower lobe occult pneumonia Extensive history of smoking and nicotine use Plan: Bronchodilators IV steroids Breathing treatments Deep breathing exercise incentive spirometry Oral antibiotics DVT prophylaxis Patient has been educated about smoking cessation Send sputum for Gram stain and culture when samples are available Ordered a chest x-ray for tomorrow morning Time with Patient: Greater than 30
[2018-07-18 11:52] LABS: Glucose,Whole Blood 134 mg/dL (75-99)
--- NOTE | 2018-07-18 12:08 | PN ---
PROGRESS NOTE DATE OF SERVICE: 07/17/2018 PRESENTING COMPLAINT: Short of breath. INTERVAL HISTORY: This patient was seen by me yesterday on 07/17/2018. Admitted with severe COPD exacerbation. Breathing is getting better. No sputum. Eating better, though still gets easily short winded on exertion, but started to respond. REVIEW OF SYSTEMS: Done for constitutional, cardiovascular, GI, pulmonary; relevant findings as above. CURRENT MEDICATIONS: Current medications are reviewed that include bronchodilators, IV Solu-Medrol. PHYSICAL EXAMINATION: On examination, temperature 98.7, pulse 98, respirations 18, blood pressure 150/83, pulse ox 93%. GENERAL APPEARANCE: Lying in bed. Less tired. EYES: Pupil equal. Conjunctivae. NECK: JVD not raised. Mass not palpable. RESPIRATORY: Effort increased. LUNGS: Decreased breath sounds, somewhat better air entry. Prolonged expiration. CARDIOVASCULAR: First and second sounds normal. No edema. ABDOMEN: Soft, nontender. Liver and spleen not palpable. PSYCHIATRY: Alert and oriented x3. Mood and affect is less anxious. INVESTIGATIONS: White count 7.9, hemoglobin 11.2 potassium 4.6. ASSESSMENT: 1. Acute severe chronic obstructive pulmonary disease exacerbation in a smoker, started to respond. 2. Chronic nicotine dependence. Patient is a cigarette smoker. 3. Chronic low back pain for which patient is on chronic pain medications. 4. Hyperlipidemia. 5. Benign prostatic hypertrophy. 6. Peptic ulcer disease. 7. Anxiety, depression, not otherwise specified. PLAN: Continue current medication and treatment plan. Will cut back on IV Solu-Medrol dose tomorrow. The patient encouraged to ambulate. Will follow. MMODL / IJN: [id number] /
[2018-07-18] MEDS: methylPREDNISolone SOD SUCCI 40 MG/ML 1 ML VIAL IV SCH ×2 (16:01→23:39)
[2018-07-18 17:24] LABS: Glucose,Whole Blood 94 mg/dL (75-99)
[2018-07-18 19:44] LABS: Glucose,Whole Blood 119 mg/dL (75-99)
[2018-07-18] MEDS: tiZANidine 4 MG TAB PO SCH (21:07)
[2018-07-18] MEDS: ATORVASTATIN 80 MG TAB PO SCH (21:08)
[2018-07-18] MEDS: traZODone HCL 50 MG TAB PO SCH (23:38)
--- NOTE | 2018-07-18 23:52 | PN ---
PROGRESS NOTE DATE OF SERVICE: 07/18/2018 PRESENTING COMPLAINT: Short of breath. INTERVAL HISTORY: This patient, ex-smoker presented with severe chronic obstructive pulmonary disease exacerbation. Breathing continues to improve. Tolerating a diet, walking a bit better. REVIEW OF SYSTEMS: Done for constitutional, cardiovascular, GI, pulmonary; relevant findings as above. CURRENT MEDICATIONS: Reviewed that include IV Solu-Medrol 40 mg q.8. EXAMINATION: VITAL SIGNS: Temperature 97.4, pulse 73, respiration 16, blood pressure 116/83, pulse ox 94% on 3 L. GENERAL APPEARANCE: Sitting up, eating. EYES: Pupils equal. Conjunctivae normal. NECK: JVD not raised. Mass not palpable. RESPIRATORY: Effort normal. LUNGS: Decreased breath sounds, improving air entry. CARDIOVASCULAR: 1st and 2nd sounds normal. No edema. ABDOMEN: Soft, nontender. Liver and spleen not palpable. PSYCHIATRY: Alert and oriented x3. Mood and affect normal. INVESTIGATIONS: Potassium 4.8. Accu-Cheks are noted. ASSESSMENT: 1. Acute severe chronic obstructive pulmonary disease exacerbation in a smoker, doing better. 2. Chronic nicotine dependence, patient is a cigarette smoker. 3. Chronic low back pain for which patient is on chronic pain medication. 4. Hyperlipidemia. 5. Benign prostatic hypertrophy. 6. Peptic ulcer disease. 7. Anxiety and depression, not otherwise specified. PLAN: Patient doing overall much better. Discussed with Dr. Coats from Pulmonary. The patient possibly could be discharged tomorrow if continues to improve. MMODL / IJN: [id number] /
[2018-07-19] MEDS: IPRATROPIUM-ALBUTEROL 3 ML NEB INHALATION SCH ×5 (03:04→18:52)
[2018-07-19] MEDS: BUDESONIDE 1 MG/2 ML NEBU INHALATION SCH ×2 (05:53→18:52)
[2018-07-19 07:17] LABS: Glucose,Whole Blood 102 mg/dL (75-99)
[2018-07-19 08:01] LABS: Anion Gap 4 mmol/L; Blood Urea Nitrogen 20 mg/dL (9-20); Calcium 8.9 mg/dL (8.4-10.2); Carbon Dioxide 31 mmol/L (22-30); Chloride 105 mmol/L (98-107); Glucose 113 mg/dL (74-99); Potassium 5.6 mmol/L (3.5-5.1); Sodium 140 mmol/L (137-145)
--- NOTE | 2018-07-19 08:31 | XR ---
EXAMINATION TYPE: XR chest 1V portable DATE OF EXAM: 07/19/2018 COMPARISON: 07/14/2018 HISTORY: Left lower lobe pneumonia TECHNIQUE: Single frontal view of the chest is obtained. FINDINGS: Left-sided consolidation and pleural effusion is stable. Right lung clear. No pneumothorax or interstitial edema. Diffuse osteopenia with arthropathy of the shoulders. Hypertrophic and degene rative change the spine. Atherosclerotic change aorta. IMPRESSION: Stable left lower lobe infiltrate and small effusion.
[2018-07-19] MEDS: METHADONE 5 MG TAB PO SCH ×2 (09:27→21:45)
[2018-07-19] MEDS: methylPREDNISolone SOD SUCCI 40 MG/ML 1 ML VIAL IV SCH ×2 (09:28→15:24)
[2018-07-19] MEDS: CLOPIDOGREL 75 MG TAB PO SCH (09:28)
[2018-07-19] MEDS: DOXYCYCLINE 50 MG CAP PO SCH ×2 (09:28→21:45)
[2018-07-19] MEDS: ENOXAPARIN 40 MG/0.4 ML SYRINGE SQ SCH (09:28)
[2018-07-19] MEDS: INSULIN ASPART 100 UNIT/ML 1 ML 10 ML VIAL SQ SCH ×4 (09:44→21:46)
[2018-07-19 11:39] LABS: Glucose,Whole Blood 94 mg/dL (75-99)
[2018-07-19] MEDS ORDERED: SODIUM POLYSTYRENE SULFONATE 15 GM/60 ML BOTTLE PO STA ×2 (13:49→14:16)
--- NOTE | 2018-07-19 15:10 | P.PN ---
Subjective Progress Note Date: 07/19/18 Principal diagnosis: Acute COPD exacerbation, acute purulent tracheobronchitis, small left-sided pleural effusion, left lower lobe pneumonia, severe COPD emphysema, extensive history of smoking and nicotine use 07/19/2018, patient seen eval examined during the rounds clinically patient has been doing well cuff congestion shortness breath is improved breathing more comfortably, patient noted to have mild elevation potassium being monitor observe for 1 more day if remains stable possible discharge in next 24 hours 07/18/2018, patient seen and evaluated examined today, today feeling slightly better cough congestion has improved but the patient has significant symptoms last night however extra breathing treatment were helpful, patient remains on IV steroids broad-spectrum antibiotics and breathing treatment unable to get the sputum so far will reorder it will obtain a follow-up chest x-ray as well further recommendations pending would continue antibiotics breathing treatments steroids for now with the same plan of care with close monitoring and observation 07/17/2018, patient seen eval examined during the rounds clinically has still have ongoing cough congestion shortness of breath severity of breathing difficulty with tenacious secretions are still there and labs reviewed medications reviewed him a blood cultures no growth so far labs reviewed medications reviewed, findings on the computed tomography scan were reviewed with the patient as well 63-year-old male with past medical history of severe COPD and chronic persistent asthma, patient has been an active smoker about half to 1 pack per day, patient recently has been hospitalized in mid of June with the increasing respiratory difficulty cough required IV steroids breathing treatments and eventually improved recovered and was discharged in stable condition was doing well for 5-6 days post discharge and slowly started having worsening of breathing difficulties along with chest tightness cough denies any hemoptysis cough is mostly dry and nonproductive, patient does have some feverish feeling, on specific questioning denies any seizure-like to a loss of consciousness), denies any chest pain or radiation of pain, denies any bowel or bladder dysfunction, admitted chest x-ray revealed a small left-sided pleural effusion, the computed tomography scan of the chest which was performed 2018 failed to reveal filling defect like pulmonary embolism however does reveal multiple compression fracture in the the lumbar vertebra, small left- sided pleural effusion with subsegmental atelectasis was noted, patient is being treated with IV steroids along with bronchodilators Objective - Vital Signs Vital signs: Vital Signs Temp 98.1 F 07/19/18 14:55 Pulse 70 07/19/18 14:55 Resp 12 07/19/18 14:55 BP 154/84 07/19/18 14:55 Pulse Ox 97 07/19/18 14:55 Intake & Output 07/18/18 07/19/18 07/19/18 18:59 06:59 18:59 Intake Total 1200 540 500 Balance 1200 540 500 Intake: Oral 1200 540 500 Other: Voiding Method Toilet Toilet # Voids 1 3 3 - Exam - Constitutional General appearance: average body habitus, cooperative, disheveled, mild distress - EENT Eyes: EOMI, PERRLA, fundus normal, poor dentition, normal appearance Ears: bilateral: normal - Neck Neck: normal ROM Carotids: bilateral: upstroke normal Thyroid: bilateral: normal size - Respiratory Respiratory: bilateral: diminished, rhonchi, wheezing, prolonged expiration, negative: CTA, dullness, rales - Cardiovascular Rhythm: regular Heart sounds: normal: S1, S2 - Gastrointestinal General gastrointestinal: normal bowel sounds, soft - Neurologic Neurologic: CNII-XII intact - Musculoskeletal Musculoskeletal: gait normal, generalized weakness, strength equal bilaterally - Psychiatric Psychiatric: A&O x's 3, appropriate affect, intact judgment & insight - Labs CBC & Chem 7: 07/17/18 07:54 07/19/18 07:03 Labs: Abnormal Lab Results - Last 24 Hours (Table) 07/18/18 07/19/18 07/19/18 Range/Units 19:42 07:03 07:16 Potassium 5.6 H (3.5-5.1) mmol/L Carbon Dioxide 31 H (22-30) mmol/L Glucose 113 H (74-99) mg/dL POC Glucose (mg/dL) 119 H 102 H (75-99) mg/dL Microbiology - Last 24 Hours (Table) 07/14/18 20:25 Blood Culture - Preliminary Blood No Growth after 96 hours Assessment and Plan Assessment: Hyperkalemia Acute COPD exacerbation Acute tracheobronchitis Small left-sided pleural effusion Left lower lobe occult pneumonia Extensive history of smoking and nicotine use Plan: Bronchodilators Status post Kayexalate with repeat labs pending for tomorrow IV steroids Breathing treatments Deep breathing exercise incentive spirometry Oral antibiotics DVT prophylaxis Patient has been educated about smoking cessation Send sputum for Gram stain and culture when samples are available Ordered a chest x-ray for tomorrow morning Time with Patient: Greater than 30
[2018-07-19 17:20] LABS: Glucose,Whole Blood 102 mg/dL (75-99)
--- NOTE | 2018-07-19 17:36 | PN ---
PROGRESS NOTE DATE OF SERVICE: 07/19/2018 PRESENTING COMPLAINT: Short of breath. INTERVAL HISTORY: This patient presented with severe COPD exacerbation, improving. Breathing continues to improve slowly. Tolerating a diet. Potassium came back at 5.6. Kayexalate was ordered. Patient has been out of bed, up and about. REVIEW OF SYSTEMS: Done for constitutional, cardiovascular, GI, pulmonary; relevant findings as above. CURRENT MEDICATIONS: Reviewed. They include: 1. Bronchodilators. 2. IV Solu-Medrol q.8. 3. Doxycycline. PHYSICAL EXAMINATION: Temperature 98.1, pulse 70, respiration 12, blood pressure 154/84, pulse ox 97% on 2 L. GENERAL APPEARANCE: Sitting up. Looking better. EYES: Pupils equal. Conjunctivae normal. NECK: JVD not raised. Mass not palpable. RESPIRATORY: Effort normal. LUNGS: Decreased breath sounds. Prolonged expiration. CARDIOVASCULAR: First and second sounds normal. No edema. ABDOMEN: Soft, non-tender. Liver and spleen not palpable. PSYCHIATRY: Alert and oriented x3. Mood and affect normal. INVESTIGATIONS: Potassium 5.6. ASSESSMENT: 1. Acute severe chronic obstructive pulmonary disease exacerbation in a smoker, improving. 2. Chronic nicotine dependence. Patient is a cigarette smoker. 3. Chronic low back pain, for which patient is on chronic pain medication. 4. Hyperlipidemia. 5. Benign prostatic hypertrophy. 6. Peptic ulcer disease. 7. Anxiety, depression not otherwise specified. 8. Hyperkalemia. PLAN: Will give the patient Kayexalate 30 grams and low-potassium diet. Patient will be switched to oral prednisone in the morning. Check potassium in the morning. Hopefully can go home tomorrow. MMODL / IJN: [id number] /
[2018-07-19 20:34] LABS: Glucose,Whole Blood 113 mg/dL (75-99)
[2018-07-19] MEDS: tiZANidine 4 MG TAB PO SCH (21:45)
[2018-07-19] MEDS: ATORVASTATIN 80 MG TAB PO SCH (21:45)
[2018-07-19] MEDS: traZODone HCL 50 MG TAB PO SCH (23:50)
[2018-07-20] MEDS: IPRATROPIUM-ALBUTEROL 3 ML NEB INHALATION SCH ×5 (00:31→15:11)
[2018-07-20 07:15] LABS: Glucose,Whole Blood 95 mg/dL (75-99)
[2018-07-20] MEDS: BUDESONIDE 1 MG/2 ML NEBU INHALATION SCH (07:34)
[2018-07-20 08:47] LABS: Anion Gap 3 mmol/L; Blood Urea Nitrogen 20 mg/dL (9-20); Calcium 8.9 mg/dL (8.4-10.2); Carbon Dioxide 34 mmol/L (22-30); Chloride 104 mmol/L (98-107); Glucose 88 mg/dL (74-99); Potassium 4.6 mmol/L (3.5-5.1); Sodium 141 mmol/L (137-145)
[2018-07-20] MEDS ORDERED: predniSONE 20 MG TAB PO SCH (09:00)
[2018-07-20] MEDS: ENOXAPARIN 40 MG/0.4 ML SYRINGE SQ SCH (09:40)
[2018-07-20] MEDS: DOXYCYCLINE 50 MG CAP PO SCH (09:41)
[2018-07-20] MEDS: CLOPIDOGREL 75 MG TAB PO SCH (09:41)
[2018-07-20] MEDS: METHADONE 5 MG TAB PO SCH (09:41)
[2018-07-20] MEDS: INSULIN ASPART 100 UNIT/ML 1 ML 10 ML VIAL SQ SCH ×2 (09:42→13:05)
[2018-07-20 12:03] LABS: Glucose,Whole Blood 88 mg/dL (75-99)
[2018-07-20 15:47] VITALS: BP 155/69; PULSE 65; RESP 16; TEMP 97.8
--- NOTE | 2018-07-22 01:47 | DS ---
DISCHARGE SUMMARY DATE OF ADMISSION: 07/15/2018 DATE OF DISCHARGE: 07/20/2018 FINAL DIAGNOSES: 1. Acute severe chronic obstructive pulmonary disease exacerbation in a smoker. 2. Chronic nicotine dependence patient is a cigarette smoker. 3. Chronic low back pain for which patient is on chronic pain medication. 4. Hyperlipidemia. 5. Benign prostatic hypertrophy. 6. Peptic ulcer disease. 7. Anxiety and depression, not otherwise specified. 8. Hyperkalemia. HOSPITAL COURSE: This patient who is an ex-smoker presented with severe COPD exacerbation, responded well to bronchodilators, steroids. By the time of discharge, doing much better. Able to walk around, doing much better. Pulse ox 94 percent on room air. PHYSICAL EXAMINATION: Temperature 97.8, pulse 65, respiration 16, blood pressure 150/69, pulse ox 94 percent on room air. Lungs: Improved air entry. Anxiety controlled. CONSULTATION: Dr. Kennedy Coats from Pulmonary. Chest CTA negative for PE. DISCHARGE MEDICATIONS: 1. Iron 325 p.o. daily. 2. Trazodone 150 mg q.h.s. 3. QVAR 80 1 puff b.i.d. 4. Calcium 600 vitamin D3 one tablet p.o. daily. 5. Vitamin D3 1000 units p.o. daily. 6. Plavix 75 mg p.o. daily. 7. DuoNeb q.i.d. 8. Methadone 7.5 p.o. q.12h. 9. Zanaflex 4 mg q.h.s. 10.Lipitor 80 mg q.h.s. 11.Doxycycline 100 mg b.i.d. 6 capsules. 12.Melatonin 3 mg q.h.s. p.r.n. 13.Prednisone taper. FOLLOWUP: Follow up with Dr. Yi in 1 week, follow with Dr. Kennedy Coats in 1 week. [facility] visiting nurses. Copy to Dr. Yi. MMODL / IJN: [id number] /
--- NOTE | 2018-07-23 15:41 | CDI ---
Documentation Clarification Form Date: 07/23/18 From: Cecile Adamosn Phone: If you have a question regarding this query, please contact Miroslava Ricks at [phone] between 8am and 5pm. Admit Date: 07/17/2018 5:20:00 AM Patient Name: Tim Mcgill Visit Number: [id number] Discharge Date: 07/20/2018 5:07:00 PM ATTENTION: The Clinical Documentation Specialists (CDI) and [facility] Coding Staff appreciate your assistance in clarifying documentation. Please respond to the clarification below the line at the bottom and electronically sign. The CDI & [facility] Coding staff will review the response and follow-up if needed. Please note: Queries are made part of the Legal Health Record. If you have any questions, please contact the author of this message via ITS. Dr. Alec Sanford Multiple compression fractures has been documented in Dr. Benavides's consult note and progress notes. History/Risk Factors: Patient has a history of chronic back pain on chronic pain meds and left hip sciatica. Patient was adimtted for COPD exacerbation and acute bronchitis. Clinical Indications: Chronic low back pain. X-Ray Results: CT Angio Chest: [place] lumbar vertebral body height loss. Correlate with pain for acuity of compression fractures. Treatment: Home meds of Methadone 7.5 mg q 12, Zanaflex 4 mg q h.s. In your professional opinion, please specify the following: Etiology of fracture: Traumatic Pathological (specify cause): Neoplastic disease Osteoporosis Other (please specify): Unable to determine Episode of care: Initial Subsequent with delayed healing Subsequent with malunion Subsequent with nonunion Sequela Also, indicate any associated diagnosis/conditions related to the Fracture in your documentation. unable to determine MTDD
== END 2018-07-20 17:07 | disposition home or self-care (01) | DRG 190 ==
LOC: EC 19:36 → 4SSUR 22:44 → OBSVTOIN 07-17 05:20
PROVIDERS: ADMIT Hospitalist; ATTEND Hospitalist
DX: J44.1 Chronic obstructive pulmonary disease with (acute) exacerbation (principal); J18.9 Pneumonia, unspecified organism; J90 Pleural effusion, not elsewhere classified; J98.11 Atelectasis; M48.56XA Collapsed vertebra, not elsewhere classified, lumbar region, initial encounter for fracture; J44.0 Chronic obstructive pulmonary disease with (acute) lower respiratory infection; E87.5 Hyperkalemia; E78.5 Hyperlipidemia, unspecified; F17.210 Nicotine dependence, cigarettes, uncomplicated; F32.9 Major depressive disorder, single episode, unspecified; F41.9 Anxiety disorder, unspecified; G89.29 Other chronic pain; J20.9 Acute bronchitis, unspecified; K27.9 Peptic ulcer, site unspecified, unspecified as acute or chronic, without hemorrhage or perforation; N40.0 Benign prostatic hyperplasia without lower urinary tract symptoms; R79.1 Abnormal coagulation profile; M54.5 Low back pain; M54.32 Sciatica, left side; Z96.642 Presence of left artificial hip joint; Z79.02 Long term (current) use of antithrombotics/antiplatelets; Z79.891 Long term (current) use of opiate analgesic; Z79.899 Other long term (current) drug therapy; Z88.6 Allergy status to analgesic agent; Z88.5 Allergy status to narcotic agent; Z87.01 Personal history of pneumonia (recurrent); Z90.49 Acquired absence of other specified parts of digestive tract; Z83.3 Family history of diabetes mellitus
CPT/HCPCS: 36415; 71045; 71046; 71275; 80048; 80053; 82550; 82553; 83036; 83735; 83880; 84484; 85025; 85379; 85610; 85730; 87040; 93005; 94640; 94760; 96365; 96375; 99291

== ENCOUNTER 2018-08-20 07:15 | Day surgery (SDC) | payer OTHER ==
[2018-08-15 18:17] VITALS: BMI 27.4
[~2018-08-20 07:15] MED LIST: BUPIVACAINE (PF) 0.75% 5 ML, HYALURONIDASE, HUMAN RECOMB 150 UNIT, LIDOCAINE 2% (PF) 10... MISCELLANE ONE; GENTAMICIN/PREDNISOL AC OPHTH OINT 3.5GM OPHTHALMIC ONE; LACTATED RINGERS 1,000 ML IV SCH; TIMOLOL 0.5% OPHTH DROPS 5 ML BTL OP ONE; TOBRA-DEXAMET 0.3-0.1% OPHTH OINT 3.5 GM TUBE OPHTHALMIC ONE
[2018-08-20 07:56] VITALS: RESP 18; TEMP 98.1
[2018-08-20] MEDS: CYCLOPENTOLATE 1% OPHTH SOLN 2 ML BTL OP ONE ×3 (07:59→08:16)
[2018-08-20] MEDS: PHENYLEPHRINE 10% OPHTH DROPS 5 ML BTL OP ONE ×3 (08:03→08:18)
[2018-08-20] MEDS ORDERED: LACTATED RINGERS 1,000 ML IV ONE (08:04)
[2018-08-20] MEDS: KETOROLAC 0.5% OPHTH DROPS 5 ML BTL OP ONE ×3 (08:06→08:21)
[2018-08-20] MEDS ORDERED: LIDOCAINE 1% 20 ML VIAL (10MG/ML) FOR IV START INTRADERMA ONE (08:07)
[2018-08-20] MEDS ORDERED: BALANCED SALT IRRIG SOLN COMB2 15 ML IRRIG.SOLN INTRAOCULA ONE (09:11)
[2018-08-20] MEDS ORDERED: HYALURONATE SODIUM INTRAOCULAR 1 EACH SYRINGE (10MG/ML) INTRAOCULA ONE (09:11)
[2018-08-20] MEDS ORDERED: TOBRA-DEXAMET 0.3-0.1% OPHTH OINT 3.5 GM TUBE LEFT EYE ONE (09:11)
[2018-08-20] MEDS ORDERED: fentaNYL (PF) 50 MCG/ML 2 ML AMP ONE (09:12)
[2018-08-20] MEDS ORDERED: MIDAZOLAM 2 MG/2 ML VIAL ONE (09:12)
[2018-08-20] MEDS ORDERED: PROPOFOL 10 MG/ML 20 ML VIAL IV ONE (09:12)
[2018-08-20] MEDS ORDERED: EPINEPHrine (PF) 0.5 ML in BALANCED SALT IRRIG SOLN COMB2 500 ML IRRIGATION ONE (09:24)
--- NOTE | 2018-08-20 09:39 | P.OP ---
Date of Procedure: 08/20/18 Procedure(s) Performed: PREOPERATIVE DIAGNOSIS: Cataract, left eye. POSTOPERATIVE DIAGNOSIS: Cataract, left eye. OPERATION: Phacoemulsification of cataract, intraocular lens placement, left eye. DESCRIPTION OF PROCEDURE: The patient was taken to the operating room. Intravenous Propofol was given so as to bring about sedation. The following mixture was given for local anesthesia: 5 mL of 2% lidocaine, 5 mL of 0.75% Marcaine, and 1 mL of Wydase. Approximately 4 mL was injected in the retrobulbar space of the surgical eye. Additional 1 mL was then directed to the temporal area of the surgical eye. This was performed to allow adequate neurological block of the facial muscles. The patient was revived. The patient was prepped and draped in the usual sterile manner for the operative eye. A lid speculum was put into position. The conjunctiva was resected back from the limbus in the 12 o'clock position. Bleeding was controlled with electrocautery. A #69 blade was then used and a half-thickness scleral incision approximately 1-mm posterior to the limbus was made on bare sclera. This was shelved in the clear cornea using a crescent knife. Next a 15-degree blade was used to make a stab incision at the 3 o'clock position at the corneolimbal interface. A keratome blade was then used and the superior wound was extended into the anterior chamber. Viscoelastic was injected into the anterior chamber to maintain its form. A cystotome was used and a continuous anterior capsulotomy was made. Hydrodissection of the lens cortex using a blunt cannula and BSS was performed. A phaco probe was then introduced and a groove extending from 12 to 6 o'clock in the lens was created. A Geovany wand was used through the stab incision and used to perform a divide and conquer dismantling of the cataract. An irrigation aspiration probe was utilized and any residual cortex was removed from the eye. Again, viscoelastic was injected into the anterior chamber. An Josue posterior chamber lens implant was placed in a delivery cartridge and injected into the anterior chamber. A Sinskey hook was utilized to spin the lens into position within the capsular bag. The irrigation and aspiration probe was again introduced and any residual viscoelastic was removed from the eye. BSS was injected via blunt canula into the limbal stab incision and the anterior chamber was re-inflated. The conjunctiva was reapproximated using electrocautery. One drop of 0.25% Timoptic was placed over the corneal along with an antibiotic ophthalmic ointment. Two sterile patches and a Mccain eye shield were taped into position. The patient was transported to the recovery room in stable condition. Pathology: none sent Condition: stable Disposition: same day
[2018-08-20 09:56] VITALS: BP 112/72; PULSE 72
== END 2018-08-20 10:16 | disposition home or self-care (01) ==
LOC: OR 07:15
PROVIDERS: ATTEND Ophthalmology
DX: H25.13 Age-related nuclear cataract, bilateral (principal); E78.5 Hyperlipidemia, unspecified; J44.9 Chronic obstructive pulmonary disease, unspecified; M19.90 Unspecified osteoarthritis, unspecified site; F17.200 Nicotine dependence, unspecified, uncomplicated; Z79.891 Long term (current) use of opiate analgesic; Z79.899 Other long term (current) drug therapy; Z79.02 Long term (current) use of antithrombotics/antiplatelets; Z88.6 Allergy status to analgesic agent; Z83.3 Family history of diabetes mellitus; Z82.61 Family history of arthritis; Z96.642 Presence of left artificial hip joint; Z79.51 Long term (current) use of inhaled steroids
CPT/HCPCS: 66984; V2632; J2250; J3470; J2001; J0171; J3010; J2704

== ENCOUNTER 2018-10-15 09:31 | Day surgery (SDC) | payer OTHER ==
[~2018-10-15 09:31] MED LIST changes: -BUPIVACAINE (PF) 0.75% 5 ML, HYALURONIDASE, HUMAN RECOMB 150 UNIT, LIDOCAINE 2% (PF) 10... MISCELLANE ONE; -GENTAMICIN/PREDNISOL AC OPHTH OINT 3.5GM OPHTHALMIC ONE; -TIMOLOL 0.5% OPHTH DROPS 5 ML BTL OP ONE; -TOBRA-DEXAMET 0.3-0.1% OPHTH OINT 3.5 GM TUBE OPHTHALMIC ONE
[2018-10-15] MEDS: PHENYLEPHRINE 10% OPHTH DROPS 5 ML BTL OP ONE ×3 (11:12→11:36)
[2018-10-15 11:14] VITALS: RESP 16; TEMP 97.8
[2018-10-15] MEDS ORDERED: LIDOCAINE 1% 20 ML VIAL (10MG/ML) FOR IV START INTRADERMA ONE (11:15)
[2018-10-15] MEDS: CYCLOPENTOLATE 1% OPHTH SOLN 2 ML BTL OP ONE ×3 (11:15→11:39)
[2018-10-15] MEDS ORDERED: LACTATED RINGERS 1,000 ML IV ONE (11:15)
[2018-10-15] MEDS: KETOROLAC 0.5% OPHTH DROPS 5 ML BTL OP ONE ×3 (11:18→11:42)
[2018-10-15] MEDS ORDERED: PROPOFOL 10 MG/ML 20 ML VIAL IV ONE (12:02)
[2018-10-15] MEDS ORDERED: BALANCED SALT IRRIG SOLN COMB2 15 ML IRRIG.SOLN IRRIGATION ONE (12:19)
[2018-10-15] MEDS ORDERED: EPINEPHrine (PF) 0.5 ML in BALANCED SALT IRRIG SOLN COMB2 500 ML IRRIGATION ONE (12:19)
[2018-10-15] MEDS ORDERED: HYALURONATE SODIUM INTRAOCULAR 1 EACH SYRINGE (10MG/ML) INTRAOCULA ONE (12:20)
--- NOTE | 2018-10-15 12:28 | P.OP ---
Date of Procedure: 10/15/18 Procedure(s) Performed: PREOPERATIVE DIAGNOSIS: Cataract, right eye. POSTOPERATIVE DIAGNOSIS: Cataract, right eye. OPERATION: Phacoemulsification of cataract, intraocular lens placement, right eye. DESCRIPTION OF PROCEDURE: The patient was taken to the operating room. Intravenous Propofol was given so as to bring about sedation. The following mixture was given for local anesthesia: 5 mL of 2% lidocaine, 5 mL of 0.75% Marcaine, and 1 mL of Wydase. Approximately 4 mL was injected in the retrobu lbar space of the surgical eye. Additional 1 mL was then directed to the temporal area of the surgical eye. This was performed to allow adequate neurological block of the facial muscles. The patient was revived. The patient was prepped and draped in the usual sterile manner for the operative eye. A lid speculum was put into position. The conjunctiva was resected back from the limbus in the 12 o'clock position. Bleeding was controlled with electrocautery. A #69 blade was then used and a half-thickness scleral incision approximately 1-mm posterior to the limbus was made on bare sclera. This was shelved in the clear cornea using a crescent knife. Next a 15-degree blade was used to make a stab incision at the 3 o'clock position at the corneolimbal interface. A keratome blade was then used and the superior wound was extended into the anterior chamber. Viscoelastic was injected into the anterior chamber to maintain its form. A cystotome was used and a continuous anterior capsu lotomy was made. Hydrodissection of the lens cortex using a blunt cannula and BSS was performed. A phaco probe was then introduced and a groove extending from 12 to 6 o'clock in the lens was created. A Geovany wand was used through the stab incision and used to perform a divide and conquer dismantling of the cataract. An irrigation aspiration probe was utilized and any residual cortex was removed from the eye. Again, viscoelastic was injected into the anterior chamber. An Josue posterior chamber lens implant was placed in a delivery cartridge and injected into the anterior chamber. A Sinskey hook was utilized to spin the lens into position within the capsular bag. The irrigation and aspiration probe was again introduced and any residual viscoelastic was removed from the eye. BSS was injected via blunt canula into the limbal stab incision and the anterior chamber was re-inflated. The conjunctiva was reapproximated using electrocautery. One drop of 0.25% Timoptic was placed over the corneal along with an antibiotic ophthalmic ointment. Two sterile patches and a Mccain eye shield were taped into position. The patient was transported to the recovery room in stable condition. Pathology: none sent Condition: stable Disposition: same day
[2018-10-15 12:50] VITALS: BP 142/79; PULSE 70
[2018-10-15] MEDS ORDERED: BUPIVACAINE (PF) 0.75% 5 ML, HYALURONIDASE, HUMAN RECOMB 150 UNIT, LIDOCAINE 2% (PF) 10... MISCELLANE ONE ×3 (23:00)
[2018-10-15] MEDS ORDERED: TIMOLOL 0.5% OPHTH DROPS 5 ML BTL OP ONE (23:00)
[2018-10-15] MEDS ORDERED: TOBRA-DEXAMET 0.3-0.1% OPHTH OINT 3.5 GM TUBE OPHTHALMIC NR (23:00)
== END 2018-10-15 12:50 | disposition home or self-care (01) ==
LOC: OR 09:31
PROVIDERS: ATTEND Ophthalmology
DX: H25.13 Age-related nuclear cataract, bilateral (principal); H04.129 Dry eye syndrome of unspecified lacrimal gland; M19.90 Unspecified osteoarthritis, unspecified site; I10 Essential (primary) hypertension; E78.5 Hyperlipidemia, unspecified; J44.9 Chronic obstructive pulmonary disease, unspecified; F17.210 Nicotine dependence, cigarettes, uncomplicated; Z83.3 Family history of diabetes mellitus; Z79.02 Long term (current) use of antithrombotics/antiplatelets; Z79.891 Long term (current) use of opiate analgesic; Z79.899 Other long term (current) drug therapy; Z88.6 Allergy status to analgesic agent
CPT/HCPCS: 66984; V2632; J3470; J2001; J0171; J2704

== ENCOUNTER 2019-01-27 15:50 | Emergency (ER) | payer OTHER ==
[2019-01-27 16:09] VITALS: RESP 18
[2019-01-27] MEDS ORDERED: cefTRIAXone 1,000 MG VIAL (IM USE) IM STA (19:03)
--- NOTE | 2019-01-27 19:04 | ED ---
General Adult HPI - General Chief complaint: Extremity Injury, Lower Stated complaint: Feet & leg swelling Time Seen by Provider: 01/27/19 17:10 Source: patient Mode of arrival: ambulatory Limitations: no limitations - History of Present Illness Initial comments: Patient is a 63-year-old male presenting to the emergency department with a chief complaint of right lower leg swelling. Patient reports seeing a bird cage assembler for an neuropathy. Patient is not a diabetic. Patient reports the right lower leg swelling has started approximately 2 weeks ago and has increased in severity. Patient was sent for a Doppler ultrasound on Sunday by his bird cage assembler which was unremarkable. Patient reports were last few days he has developed swelling on his left lower leg as well but it is not as severe as right. Patient reports mild erythema on the right lower leg. Patient reports a history of cellulitis and is concerned that he might be infected again. Patient reports pain is exacerbated with ambulation alleviated at rest. - Related Data Home Medications Medication Instructions Recorded Confirmed traZODone HCL 150 mg PO HS 06/22/16 01/27/19 Beclomethasone Dipropionate [Qvar 1 puff INHALATION RT-BID 07/12/18 01/27/19 80 mcg] Cholecalciferol [Vitamin D3 (25 1,000 unit PO DAILY 07/12/18 01/27/19 Mcg = 1000 Iu)] Clopidogrel [Plavix] 75 mg PO DAILY 07/12/18 01/27/19 Ipratropium-Albuterol Nebulize 3 ml INHALATION RT-QID 07/12/18 01/27/19 [Duoneb 0.5 mg-3 mg/3 ml Soln] Methadone HCl [Dolophine HCl] 7.5 mg PO TID 07/12/18 01/27/19 tiZANidine HCL [Zanaflex] 4 mg PO HS 07/12/18 01/27/19 Atorvastatin [Lipitor] 80 mg PO HS 07/14/18 01/27/19 Albuterol Inhaler [Ventolin Hfa 1 - 2 puff INHALATION RT-Q6H PRN 01/27/19 01/27/19 Inhaler] Calcium Carbonate/Vitamin D3 1 tab PO DAILY 01/27/19 01/27/19 [Calcium 600-Vit D3 800 Caplet] Gabapentin [Neurontin] 300 mg PO BID 01/27/19 01/27/19 Previous Rx's Medication Instructions Recorded Cephalexin [Keflex] 500 mg PO Q6HR #40 cap 01/27/19 Allergies Allergy/AdvReac Type Severity Reaction Status Date / Time ketorolac tromethamine Allergy Abdominal Verified 01/27/19 17:25 [From Toradol] Pain aspirin AdvReac Abdominal Verified 01/27/19 17:25 Pain ibuprofen AdvReac Abdominal Verified 01/27/19 17:25 Pain NSAIDS (Non-Steroidal AdvReac Abdominal Verified 01/27/19 17:25 Anti-Inflamma Pain Review of Systems ROS Statement: Those systems with pertinent positive or pertinent negative responses have been documented in the HPI. ROS Other: All systems not noted in ROS Statement are negative. Past Medical History Past Medical History: COPD, Eye Disorder, GERD/Reflux, Hyperlipidemia, Musculoskeletal Disorder, Pneumonia Additional Past Medical History / Comment(s): SEVERE CHRONIC BACK PAIN; HAD EPIDURAL INJ LAST WEEK. PUD. C-DIFF 10/2014. CAROTID ARTERY DISEASE. OSTEOPOROSIS. LT CATARACT. History of Any Multi-Drug Resistant Organisms: C-DIFF Date of last positivie culture/infection: 2014 MDRO Source:: None Past Surgical History: Cholecystectomy, Joint Replacement, Orthopedic Surgery Additional Past Surgical History / Comment(s): BONE SPUR REMOVED LT ELBOW, ORIF RT ARM, HARDWARE REMOVED LATER. LT DIONNA, COLONOSCOPY. PAIN PROC, EPIDURAL INJ. Past Anesthesia/Blood Transfusion Reactions: No Reported Reaction Past Psychological History: Anxiety, Depression Smoking Status: Current every day smoker Past Alcohol Use History: None Reported Past Drug Use History: None Reported - Past Family History Sister(s) Family Medical History: Cancer, Deep Vein Thrombosis (DVT) General Exam - General Exam Comments Initial Comments: General: Well-developed well-nourished distress HEENT: Normocephalic/atraumatic, PERLL, pharynx erythema, swallowing well, EAC no erythema, no exudates, TM clear, no cervical lymph nodes Neck: Supple, nontender, trachea midline Chest/Lungs: Normal respirations, no signs of respiratory distress clear to auscultation bilaterally no wheezes, rales, rhonchi Cardiac: Regular rate and rhythm, normal S1-S2, no murmurs rubs or gallops Abdomen/GI: Soft nontender, bowel sounds equal or quadrant x4, no guarding, no rebound no CVA tenderness Musculoskeletal: +2 right lower leg edema, mild erythema along the medial aspect of the right lower leg, negative Homans sign bilaterally, dorsalis pedis and pos terior tibialis detected using Doppler ultrasound, +1 left lower leg edema, limited range of motion due to edema, foot pain bilaterally on palpation, no ulcers or ecchymosis Skin: Warmth, no rashes or lesions, no cyanosis or diaphoresis Neurologic: AAO x 3, CN 2-12 intact, Psychiatric: Mood and affect normal, judgment normal Limitations: no limitations Course Vital Signs 01/27/19 01/27/19 16:05 19:13 Temperature 98.3 F 97.4 F L Pulse Rate 79 86 Respiratory 18 18 Rate Blood Pressure 140/71 153/92 O2 Sat by Pulse 96 96 Oximetry Medical Decision Making - Medical Decision Making Patient is a 63-year-old male presents emergency Department with a chief complaint of right lower leg swelling. Based on physical examination the patient appears to be developing an early cellulitis in his right lower leg. Patient does not have any kidney or cardiovascular problems except for carotid occlusion. Patient was given 1 g of Rocephin and will be discharged with a 10 day course of Keflex. Patient advised to keep legs elevated 3 times per day for 15-20 minutes. Strict return parameters were thoroughly discussed the patient was understanding and agreeable. Patient advised to see a bird cage assembler. Patient has an appointment with his bird cage assembler this week. Case discussed with physician. Disposition Clinical Impression: Cellulitis Disposition: HOME SELF-CARE Condition: Stable Instructions (If sedation given, give patient instructions): Cellulitis (DC) Additional Instructions: Please see prescribe medication as directed. Please follow with primary care. Please return to emergency department if symptoms worsen. Please keep foot elevated. Prescriptions: Cephalexin [Keflex] 500 mg PO Q6HR #40 cap Is patient prescribed a controlled substance at d/c from ED?: No Referrals: Gareth Yi DO [Primary Care Provider] - 1-2 days Time of Disposition: 19:04
[2019-01-27 19:15] VITALS: BP 153/92; PULSE 86; TEMP 97.4
== END 2019-01-27 19:33 | disposition home or self-care (01) ==
LOC: EC 15:50
DX: L03.115 Cellulitis of right lower limb (principal); I65.29 Occlusion and stenosis of unspecified carotid artery; R60.0 Localized edema; J44.9 Chronic obstructive pulmonary disease, unspecified; E78.5 Hyperlipidemia, unspecified; G62.9 Polyneuropathy, unspecified; G89.29 Other chronic pain; F32.9 Major depressive disorder, single episode, unspecified; F41.9 Anxiety disorder, unspecified; F17.200 Nicotine dependence, unspecified, uncomplicated; Z88.6 Allergy status to analgesic agent; Z79.02 Long term (current) use of antithrombotics/antiplatelets; Z79.51 Long term (current) use of inhaled steroids; Z79.891 Long term (current) use of opiate analgesic; Z79.899 Other long term (current) drug therapy; Z96.642 Presence of left artificial hip joint; Z82.49 Family history of ischemic heart disease and other diseases of the circulatory system
CPT/HCPCS: 99283; 96372; J0696

== ENCOUNTER → 2019-02-06 | Outpatient (CLI) | payer OTHER ==
--- NOTE | 2019-02-06 16:48 | NM ---
EXAMINATION TYPE: NM bone scan whole body DATE OF EXAM: 02/06/2019 COMPARISON: CT abdomen pelvis 12/17/2015 HISTORY: Low back pain, spondylosis Delayed whole-body scanning was performed following the injection of 24.6 mCi Tc 99m MDP. Images acq uired 3.25 hours post injection. FINDINGS: Bandlike areas of increased radio pharmaceutical uptake are present in the lumbar spine compatible wi th subacute compression deformities likely at L2, L3 and L4 which shows the greatest uptake. There is uptake involving the anterior left fourth rib and the right sixth rib laterally. Uptake at the costo vertebral angles is also present at the probable left 12th and ninth ribs, right eighth rib. Uptake w ithin the shoulders, elbows, sternoclavicular joints, feet is likely degenerative. Uptake in the maxi lla may be due to periodontal disease or possibly sinus disease. Therapeutic area at the left hip is likely due to patient's hip prosthesis. Uptake in the cervical spine likely degenerative. Soft tissue uptake is normal. Mild increased uptake in the proximal left femur is questioned. IMPRESSION: Probable osteoporotic compression fractures lumbar spine. Probable posttraumatic changes to the ribs, degenerative changes also noted. Question mild uptake in the proximal left femur may be related to p atient's hip prosthesis.
== END | disposition home or self-care (01) ==
LOC: RADNMMAIN 10:37
PROVIDERS: ATTEND Physical Medicine & Rehabilitation
DX: M54.5 Low back pain (principal); G89.4 Chronic pain syndrome; M16.11 Unilateral primary osteoarthritis, right hip; M50.322 Other cervical disc degeneration at C5-C6 level; M47.812 Spondylosis without myelopathy or radiculopathy, cervical region; M51.36 Other intervertebral disc degeneration, lumbar region; M47.817 Spondylosis without myelopathy or radiculopathy, lumbosacral region; S32.010D Wedge compression fracture of first lumbar vertebra, subsequent encounter for fracture with routine healing; S32.020D Wedge compression fracture of second lumbar vertebra, subsequent encounter for fracture with routine healing; S32.030D Wedge compression fracture of third lumbar vertebra, subsequent encounter for fracture with routine healing; S32.040D Wedge compression fracture of fourth lumbar vertebra, subsequent encounter for fracture with routine healing; S32.050D Wedge compression fracture of fifth lumbar vertebra, subsequent encounter for fracture with routine healing
CPT/HCPCS: 78306; A9503

== ENCOUNTER → 2019-02-07 | Outpatient (CLI) | payer OTHER ==
[2019-02-07 17:18] LABS: African American GFR (CKD) 124.9 (60.0-200.0); Albumin 3.8 g/dL (3.80-4.90); Albumin/Globulin Ratio 2.53 (1.60-3.17); Anion Gap 5.4 mmol/L (4.00-12.00); BUN/Creat Ratio 16.67 Ratio (12.00-20.00); Calcium 8.8 mg/dL (8.7-10.3); Carbon Dioxide 28.6 mmol/L (21.6-31.8); Globulin 1.5 g/dL (1.6-3.3); Potassium 4.6 mmol/L (3.5-5.5); Total Bilirubin 0.3 mg/dL (0.2-1.2); Total Protein 5.3 g/dL (6.2-8.2)
== END ==
LOC: LABWHC1 10:17
PROVIDERS: ATTEND Internal Medicine
DX: M81.0 Age-related osteoporosis without current pathological fracture (principal)
CPT/HCPCS: 36415; 80053; 82306

== ENCOUNTER → 2019-02-18 | Outpatient (CLI) | payer OTHER ==
[~2019-02-18] MED LIST changes: -LACTATED RINGERS 1,000 ML IV SCH; +SODIUM CHLORIDE 0.9% 500 ML 500 ML in EMPTY BAG 1 BAG IV PRN; +ZOLEDRONIC ACID 5 MG in SODIUM CHLORIDE 0.9% 100 ML IV NR
[2019-02-18 14:07] VITALS: PULSE 86; RESP 16; TEMP 98.1
== END | disposition home or self-care (01) ==
LOC: PROCWHC3 13:12
PROVIDERS: ATTEND Internal Medicine
DX: M81.0 Age-related osteoporosis without current pathological fracture (principal)
CPT/HCPCS: 96365; J3489

== ENCOUNTER → 2019-06-13 | Outpatient (CLI) | payer OTHER ==
--- NOTE | 2019-06-14 00:59 | MR ---
EXAMINATION TYPE: MR cervical spine wo con DATE OF EXAM: 06/13/2019 COMPARISON: None HISTORY: CERVICALGIA Multiplanar multiecho imaging of the cervical spine was performed with no contrast. Vertebra have fairly normal alignment. There is degenerative disc space narrowing at C5-6. There is s mall posterior disc bulging at C4-5. Spinal canal measures 7 mm at C4-5. Spinal canal measures 8 mm a t C5-6. Cervical spinal cord shows no edema. Brainstem is intact. I see no focal bone destruction. Th ere is no sign of cervical paraspinal mass. There is no evidence of a fracture. IMPRESSION: Mild spondylotic changes. Small posterior disc bulging at C4-5 and C6-7 without significant impingeme nt on the neural elements.
== END | disposition home or self-care (01) ==
LOC: RADMRIMAIN 13:33
PROVIDERS: ATTEND Physical Medicine & Rehabilitation
DX: M50.221 Other cervical disc displacement at C4-C5 level (principal); S32.010D Wedge compression fracture of first lumbar vertebra, subsequent encounter for fracture with routine healing; S32.050D Wedge compression fracture of fifth lumbar vertebra, subsequent encounter for fracture with routine healing; G89.4 Chronic pain syndrome; M16.11 Unilateral primary osteoarthritis, right hip
CPT/HCPCS: 72141